=== PATIENT | female | born 1975 | race Caucasian/White ===

== ENCOUNTER 2019-11-22 07:44 | Observation (INO) | payer OTHER, BC ==
[2019-11-22] MEDS ORDERED: Thiamine 200 MG/2 ML MDV IM ONE (08:30)
[2019-11-22] MEDS ORDERED: Nicotine 21 MG/24 Hr Patch ONE (09:43)
[2019-11-22] MEDS: LORazepam 1 MG Tab PO PRN ×2 (10:08→20:43)
[2019-11-22] MEDS: Acetaminophen 500 MG Tab PO PRN ×2 (10:09→19:27)
[2019-11-22] MEDS ORDERED: Ondansetron 4 MG Tab.DIS PO PRN (10:19)
--- NOTE | 2019-11-22 13:33 | CT ---
Date of Service: 11/22/19 Clinical Data: head injury r/t fall UNENHANCED BRAIN CT: Multislice axial acquisition without IV contrast was performed. No priors. No masses or mass effect. No intracranial hemorrhage. No evidence of acute or subacute infarct. No fractures. IMPRESSION: No acute intracranial abnormalities. [id number] [facility]
--- NOTE | 2019-11-22 13:40 | CT ---
Date of Service: 11/21/19 Clinical Data: head injury r/t fall CERVICAL SPINE CT: Multislice axial acquisition was performed. Axial images and sagittal and coronal reformations are reviewed. No priors. There is straightening of the normal cervical lordosis on the sagittal reformations. This is most likely positional or due to muscle spasm. No acute fracture or dislocation. No lytic or blastic bone lesions. There is degenerative disk disease at multiple levels, greatest at the C5-6 level. There is mild facet joint hypertrophy at multiple levels. The thyroid is enlarged. There are subtle low-density lesions in both lobes of the thyroid. Thyroid ultrasound is recommended. The soft tissues are otherwise unremarkable. The visualized lung apices are clear. [id number] MTDD
--- NOTE | 2019-11-22 13:55 | EDM.PDOC ---
ED HPI GENERAL MEDICAL PROBLEM - General Chief Complaint: Head Injury Stated Complaint: fall Time Seen by Provider: 11/22/19 08:00 Source of Information: Reports: Patient History Limitations: Reports: Altered Mental Status - History of Present Illness INITIAL COMMENTS - FREE TEXT/NARRATIVE: GABRIEL presents to the emergency room today. Apparently upon triage, she said that she fell in the parking lot, slipping on the ice, and had a 2 out of 10 headache in her occiput. She denied any nausea. After about 20 minutes, she was not able to recall her mechanism of injury. This was not witnessed. She went over for CT of her head and C-spine, and after returning to the department for a couple of minutes, she did not even recall having this done. She still denied any significant pain or nausea. She denies any other injuries as well as any pain in her extremities or trunk at all. She denies neck pain, but obviously is not the most reliable historian. She is almost confabulatory in trying to leave. Apparently she really wants to go home, where she cares for her mother, but this is a significant drive, and her friend is worried about taking her at this time, quite appropriately. She asked repeatedly if she can go outside and have a cigarette. She is unable to recall simple details of her shift such as the resident who was sitting in the hallway all night on memory Nick. 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) Other Treatments SLING OPERATOR: CT Head Pain Score (Numeric/FACES): 8 - Related Data Allergies Allergy/AdvReac Type Severity Reaction Status Date / Time No Known Allergies Allergy Verified 10/24/17 23:32 Home Meds: Home Meds NK [No Known Home Meds] 10/24/17 [History] Past Medical History - Past Health History Medical/Surgical History: Denies Medical/Surgical History MANAGER RESPIRATORY CARE History: Reports: Other (See Below) Other MANAGER RESPIRATORY CARE History: c-sections Social & Family History - Tobacco Use Smoking Status *Q: Current Every Day Smoker Years of Tobacco use: 30 Packs/Tins Daily: 1 ED ROS GENERAL - Review of Systems Review Of Systems: Unable To Obtain Reason Not Obtained: Head injury ED EXAM, HEAD INJURY - Physical Exam Exam: See Below Exam Limited By: Altered Mental Status General Appearance: Alert, WD/WN, No Apparent Distress. No: Lethargic, Obtunded Head: Atraumatic, Normocephalic. No: Scalp Swelling, Scalp Hematoma, Weinberg's Sign, Facial Tenderness, Raccoon Eyes Nexus Criteria: No: Posterior, Midline Cervical Tenderness, Evidence of Intoxication, Focal Neurological Deficit, Painful Distraction Injuries Eyes: Bilateral Eye: EOMI, Normal Inspection, PERRL Ears: Normal External Exam, Hearing Grossly Normal Nose: Normal Inspection, No Blood Throat/Mouth: Normal Inspection, Normal Lips, Normal Teeth, Normal Voice Neck: Non-Tender, Full Range of Motion Respiratory: No Respiratory Distress, Lungs Clear, Normal Breath Sounds, No Accessory Muscle Use, Chest Non-Tender Cardiovascular: Regular Rate, Rhythm, No Gallop, No Murmur, No Rub GI/Abdominal Exam: Normal Bowel Sounds, Soft, Non-Tender Back Exam: Normal Inspection, Full Range of Motion. No: Muscle Spasm, Paraspinal Tenderness, Vertebral Tenderness Extremities: Normal Inspection, Normal Range of Motion, Non-Tender, Normal Capillary Refill Neurologic: dog sitter II-XII nml As Tested, No Motor/Sensory Deficits, Alert, Normal Mood/Affect, Other (Overall her thought processes confabulatory but coherent, there is no dysdiadochokinesis, and she is pleasantly oriented only to herself demonstrating features of retrograde and anterograde amnesia) Skin: Normal Color, Warm/Dry - [place] Coma Score Best Eye Response ([place]): (4) Open Spontaneously Best Verbal Response ([place]): (4) Confused Conversation Best Motor Response (George): (6) Obeys Commands George Total: 14 Course - Vital Signs Last Recorded V/S: Last Vital Signs Temp 97.6 F 11/22/19 07:53 Pulse 86 11/22/19 07:53 Resp 16 11/22/19 09:45 BP 147/95 H 11/22/19 10:30 Pulse Ox 100 11/22/19 07:50 - Orders/Labs/Meds Orders: Active Orders 24 hr Category Date Time Status LORazepam [Ativan] Med 11/22/19 09:41 Active 1 mg PO Q3H PRN Medication Orders Acetaminophen (Tylenol Extra Strength) 1,000 mg PO Q4H PRN PRN Reason: Pain Last Admin: 11/22/19 10:09 Dose: 1,000 mg Lorazepam (Ativan) 1 mg PO Q3H PRN PRN Reason: Agitation Last Admin: 11/22/19 10:08 Dose: 1 mg Ondansetron HCl (Zofran Odt) 4 mg PO Q6H PRN PRN Reason: Nausea/Vomiting Meds: Medications Generic Name Dose Route Start Last Admin Trade Name Freq PRN Reason Stop Dose Admin Acetaminophen 1,000 mg 11/22/19 10:06 11/22/19 10:09 Tylenol Extra Strength PO 1,000 mg Q4H PRN Administration Pain Lorazepam 1 mg 11/22/19 09:41 11/22/19 10:08 Ativan PO 1 mg Q3H PRN Administration Agitation Ondansetron HCl 4 mg 11/22/19 10:19 Zofran Odt PO Q6H PRN Nausea/Vomiting Discontinued Medications Generic Name Dose Route Start Last Admin Trade Name Freq PRN Reason Stop Dose Admin Nicotine Confirm 11/22/19 09:43 Habitrol Administered 11/22/19 09:44 Dose 21 mg .ROUTE .STK-MED ONE Thiamine HCl 100 mg 11/22/19 08:30 11/22/19 08:45 Vitamin B-1 IM 11/22/19 08:31 100 mg ONETIME ONE Administration Departure - Departure Time of Disposition: 09:30 Disposition: Refer to Observation Clinical Impression: Concussion injury of brain Clinical Impression: (Ruled Out): Severe concussion - Discharge Information Sepsis Event Note - Evaluation Sepsis Screening Result: No Definite Risk - Focused Exam Vital Signs: Vital Signs Temp Pulse Resp BP Pulse Ox 11/22/19 07:55 176/117 H 11/22/19 07:53 97.6 F 86 16 11/22/19 07:50 97.6 F 88 16 171/106 H 100 Date Exam was Performed: 11/22/19 Time Exam was Performed: 13:49 - My Orders Last 24 Hours: My Active Orders 11/22/19 09:41 LORazepam [Ativan] 1 mg PO Q3H PRN - Assessment/Plan Last 24 Hours: My Active Orders 11/22/19 09:41 LORazepam [Ativan] 1 mg PO Q3H PRN
[2019-11-22] MEDS ORDERED: Nicotine 21 MG/24 Hr Patch TRDERM ONE (15:59)
[2019-11-22] MEDS ORDERED: Acetaminophen/oxyCODONE 325-5 MG Tab PO PRN (21:50)
[2019-11-23] MEDS: LORazepam 1 MG Tab PO PRN (04:20)
[2019-11-26 19:10] LABS: T PALLIDUM ANTIBODIES Non Reactive (Non Reactive)
--- NOTE | 2019-11-28 12:29 | PCM.DCSUM1 ---
Discharge Summary - Hospital Course Free Text/Narrative:: Patient admitted to inpatient unit for concussive symptoms. She slept well overnight but does continue to complain of a headache. Diagnosis: Stroke: No - Discharge Data Discharge Date: 11/23/19 Discharge Disposition: Home, Self-Care 01 Condition: Good - Referral to Home Health Primary Care Physician: PCP None - Patient Instructions Diet: Usual Diet as Tolerated Activity: Apply Ice Driving: Do Not Drive Showering/Bathing: May Shower Notify Provider of: Increased Pain, Nausea and/or Vomiting - Discharge Plan *PRESCRIPTION DRUG MONITORING PROGRAM REVIEWED*: No *COPY OF PRESCRIPTION DRUG MONITORING REPORT IN PATIENT NORI: Not Applicable Home Medications: Home Meds NK [No Known Home Meds] 10/24/17 [History] Patient Handouts: Concussion, Adult Forms: ED Department Discharge Referrals: PCP,None [Primary Care Provider] - - Discharge Summary/Plan Comment DC Time >30 min.: No - Patient Data Vitals - Most Recent: Last Vital Signs Temp 36.7 C 11/23/19 10:00 Pulse 82 11/23/19 10:00 Resp 16 11/23/19 10:00 BP 146/98 H 11/23/19 10:00 Pulse Ox 100 11/23/19 10:00 Weight - Most Recent: 155 kg Med Orders - Current: Current Medications Discontinued Medications Acetaminophen (Tylenol Extra Strength) 1,000 mg PO Q4H PRN PRN Reason: Pain Last Admin: 11/22/19 19:27 Dose: 1,000 mg Lorazepam (Ativan) 1 mg PO Q3H PRN PRN Reason: Agitation Last Admin: 11/23/19 04:20 Dose: 1 mg Nicotine (Habitrol) Confirm Administered Dose 21 mg .ROUTE .STK-MED ONE Stop: 11/22/19 09:44 Last Admin: 11/22/19 15:58 Dose: Not Given Nicotine (Habitrol) 21 mg TRDERM ONETIME ONE Stop: 11/22/19 16:00 Ondansetron HCl (Zofran Odt) 4 mg PO Q6H PRN PRN Reason: Nausea/Vomiting Oxycodone/Acetaminophen (Percocet 325-5 Mg) 1 tab PO Q6H PRN PRN Reason: Headache/Pain Last Admin: 11/22/19 22:00 Dose: 1 tab Thiamine HCl (Vitamin B-1) 100 mg IM ONETIME ONE Stop: 11/22/19 08:31 Last Admin: 11/22/19 08:45 Dose: 100 mg
== END 2019-11-23 10:50 | disposition home or self-care (01) ==
LOC: LB.ED 07:44 → LB.MS 09:45
PROVIDERS: ADMIT Family Medicine; ATTEND Family Medicine
DX: S06.9X1A Unspecified intracranial injury with loss of consciousness of 30 minutes or less, initial encounter (principal); F17.210 Nicotine dependence, cigarettes, uncomplicated; W00.0XXA Fall on same level due to ice and snow, initial encounter; Y92.481 Parking lot as the place of occurrence of the external cause
CPT/HCPCS: 36415; 70450; 72125; 80048; 84443; 85025; 85651; 86780; 96372; 99285-25; A9270-GY; G0378; J3411

== ENCOUNTER 2020-08-28 21:53 | Emergency (ER) | payer BC, OTHER ==
--- NOTE | 2020-08-28 22:51 | EDM.PDOC ---
ED HPI GENERAL MEDICAL PROBLEM - General Chief Complaint: Chest Pain Stated Complaint: CHESTPAIN Time Seen by Provider: 08/28/20 22:15 Source of Information: Reports: Patient History Limitations: Reports: No Limitations - History of Present Illness INITIAL COMMENTS - FREE TEXT/NARRATIVE: Patient presented to the ER with a c/o stabbing chest pain. She reports it occurred 4 hrs ago, for which she took ASA 81mg, reports her pain is 9 out of 10. It happened after eating dinner - pork chops and potatoes. Never happened before like this. h/o chronic migraines and headaches. Underwent occipital nerve block yesterday - using local anesthetics. No SOB. no Cough. no weakness or numbness. Reports it lasted for about 30 min before it improved. Still have some pain that is 7 out of 10. Reports to me that she encountered a head injury after a fall a year ago - which have disabled her and cause cognitive issues. no h'o CAD in the past. has a h/o smoking 1 ppd for 10 yrs. She is on Imitrex for migraine. Toradol and Flexeril for pain. Upon arrival to the ER, her BP was elevated to 150/92, and she reports that her BP was elevated when she had the chest discomfort. She is on lisinopril 10mg PO daily - but reports that her BP hasn't been controlled lately. Denies withdrawal of opioids, benzo or alcohol. 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 Constitutional: Reports: No Symptoms. Denies: Fever, Chills, Malaise HEENT: Reports: No Symptoms Cardiovascular: Reports: Chest Pain, Blood Pressure Problem GI/Abdominal: Reports: No Symptoms : Reports: No Symptoms Skin: Reports: No Symptoms Neurological: Reports: Headache Immunologic: Reports: No Symptoms ED EXAM, GENERAL - Physical Exam Exam: See Below Exam Limited By: No Limitations General Appearance: Alert, WD/WN, No Apparent Distress Eye Exam: Bilateral Eye: Normal Inspection, PERRL Ear Exam: Bilateral Ear: Auricle Normal Head: Atraumatic, Normocephalic Neck: Normal Inspection, Supple, Non-Tender Respiratory/Chest: No Respiratory Distress, Lungs Clear, Normal Breath Sounds, No Accessory Muscle Use, Chest Non-Tender Cardiovascular: Normal Peripheral Pulses, Regular Rate, Rhythm, No Edema, No Gallop GI/Abdominal: Normal Bowel Sounds, Soft, Non-Tender Back Exam: Normal Inspection, Full Range of Motion Extremities: Normal Inspection, Normal Range of Motion, Non-Tender, No Pedal Edema Neurological: Alert, Oriented, Normal Cognition, Normal Gait, No Motor/Sensory Deficits Course - Vital Signs Last Recorded V/S: Last Vital Signs Temp 35.8 C L 08/28/20 21:55 Pulse 79 08/29/20 03:00 Resp 16 08/29/20 03:00 BP 126/81 08/29/20 03:00 Pulse Ox 99 08/29/20 03:00 - Orders/Labs/Meds Orders: Active Orders 24 hr Category Date Time Status Chest 2V [CR] Stat Exams 08/28/20 22:10 Taken [facility] 08/28/20 22:30 Received Labs: Laboratory Tests 08/28/20 08/28/20 08/28/20 Range/Units 22:30 22:30 22:30 WBC 10.6 D (4.0-11.0) K/uL RBC 4.39 (3.80-5.80) M/uL Hgb 13.7 (11.5-16.5) g/dL Hct 40.7 (37.0-47.0) % MCV 93 (76-96) fL MCH 31.2 (27.0-32.0) pg MCHC 33.7 (31.0-35.0) g/dL RDW 13.7 (11.0-16.0) % Plt Count 229 (150-500) K/uL MPV 10.5 H (6.0-10.0) fL Neut % (Auto) 66.9 (45.0-70.0) % Lymph % (Auto) 23.2 (20.0-40.0) % Leake % (Auto) 8.5 (3.0-10.0) % Eos % (Auto) 1.1 (1.0-5.0) % Baso % (Auto) 0.3 (0.0-0.5) % Neut # (Auto) 7.08 (2.00-7.50) K/uL Lymph # (Auto) 2.46 (1.50-4.00) K/uL Leake # (Auto) 0.90 H (0.20-0.80) K/uL Eos # (Auto) 0.12 (0.04-0.40) K/uL Baso # (Auto) 0.03 (0.02-0.10) K/uL D-Dimer, Quantitative < 100 (0-400) ng/mL Sodium (136-145) mmol/L Potassium (3.5-5.1) mmol/L Chloride (98-107) mmol/L Carbon Dioxide (21.0-32.0) mmol/L Anion Gap (5.0-15.0) mmol/L BUN (8-26) mg/dL Creatinine (0.55-1.02) mg/dL Est Cr Clr Drug Dosing mL/min Estimated GFR (MDRD) (>60) MLS/MIN BUN/Creatinine Ratio (6-25) Glucose (74-100) mg/dL Calcium (8.5-10.1) mg/dL Total Bilirubin (0.0-1.0) mg/dL AST (15-37) U/L ALT (12-78) U/L Alkaline Phosphatase (46-116) U/L Troponin I < 0.017 (0.000-0.060) ng/mL Total Protein (6.4-8.2) g/dL Albumin (3.4-5.0) g/dL Globulin (2.2-4.2) g/dL Albumin/Globulin Ratio (0.8-2.0) TSH, Ultra Sensitive (0.358-3.740) uIU/mL 08/28/20 08/28/20 08/29/20 Range/Units 22:30 22:30 02:30 WBC (4.0-11.0) K/uL RBC (3.80-5.80) M/uL Hgb (11.5-16.5) g/dL Hct (37.0-47.0) % MCV (76-96) fL MCH (27.0-32.0) pg MCHC (31.0-35.0) g/dL RDW (11.0-16.0) % Plt Count (150-500) K/uL MPV (6.0-10.0) fL Neut % (Auto) (45.0-70.0) % Lymph % (Auto) (20.0-40.0) % Leake % (Auto) (3.0-10.0) % Eos % (Auto) (1.0-5.0) % Baso % (Auto) (0.0-0.5) % Neut # (Auto) (2.00-7.50) K/uL Lymph # (Auto) (1.50-4.00) K/uL Leake # (Auto) (0.20-0.80) K/uL Eos # (Auto) (0.04-0.40) K/uL Baso # (Auto) (0.02-0.10) K/uL D-Dimer, Quantitative (0-400) ng/mL Sodium 139 (136-145) mmol/L Potassium 3.7 (3.5-5.1) mmol/L Chloride 102 (98-107) mmol/L Carbon Dioxide 29.2 (21.0-32.0) mmol/L Anion Gap 11.5 (5.0-15.0) mmol/L BUN 14 (8-26) mg/dL Creatinine 0.96 D (0.55-1.02) mg/dL Est Cr Clr Drug Dosing 64.58 mL/min Estimated GFR (MDRD) > 60 (>60) MLS/MIN BUN/Creatinine Ratio 14.6 (6-25) Glucose 101 H (74-100) mg/dL Calcium 8.8 (8.5-10.1) mg/dL Total Bilirubin 0.3 (0.0-1.0) mg/dL AST 12 L (15-37) U/L ALT 21 (12-78) U/L Alkaline Phosphatase 58 (46-116) U/L Troponin I < 0.017 (0.000-0.060) ng/mL Total Protein 7.5 (6.4-8.2) g/dL Albumin 3.8 (3.4-5.0) g/dL Globulin 3.7 (2.2-4.2) g/dL Albumin/Globulin Ratio 1.0 (0.8-2.0) TSH, Ultra Sensitive 1.626 D (0.358-3.740) uIU/mL Meds: Medications Discontinued Medications Generic Name Dose Route Start Last Admin Trade Name Freq PRN Reason Stop Dose Admin Ketorolac Tromethamine 60 mg 08/28/20 23:19 08/28/20 23:27 Toradol IM 08/28/20 23:20 60 mg ONETIME ONE Administration Metoprolol Tartrate 25 mg 08/28/20 22:43 08/28/20 22:56 Lopressor PO 08/28/20 22:44 25 mg ONETIME ONE Administration Nitroglycerin 0.4 mg 08/28/20 22:56 08/28/20 23:08 Nitrostat SL 08/28/20 22:57 0.4 mg ONETIME ONE Administration - Re-Assessments/Exams Free Text/Narrative Re-Assessment/Exam: upon arrival, EKG was obtained - showed sinus tachycardia to [address] changes. BP was noted to be slightly elevated Cardiac workup was ordered including CXR, trop, D-Dimer, and TSH. Nitro SL was given. Departure - Departure Time of Disposition: 03:30 Disposition: Home, Self-Care 01 Condition: Good Clinical Impression: Atypical chest pain, Smoking greater than 10 pack years, Hypertension, Migraine headache Referrals: PCP,None [Primary Care Provider] - Forms: ED Department Discharge Additional Instructions: - start taking new blood pressure meds as prescribed - check your Blood pressure on a daily basis - follow up with your PCP in 1-2 weeks to discuss your BP situation - return to the ER if your symptoms got worse or any concerns - recommend smoking cessation - Problem List & Annotations (1) Atypical chest pain SNOMED Code(s): 918854270 Code(s): R07.89 - OTHER CHEST PAIN Status: Acute Priority: Medium (2) Hypertension SNOMED Code(s): 54002749 Code(s): I10 - ESSENTIAL (PRIMARY) HYPERTENSION Status: Acute Priority: Medium Qualifiers: Hypertension type: unspecified Qualified Code(s): I10 - Essential (primary) hypertension (3) Smoking greater than 10 pack years SNOMED Code(s): 93317809 Code(s): F17.210 - NICOTINE DEPENDENCE, CIGARETTES, UNCOMPLICATED Status: Acute Priority: Medium (4) Migraine headache SNOMED Code(s): 20520813 Code(s): G43.909 - MIGRAINE, UNSP, NOT INTRACTABLE, WITHOUT STATUS MIGRAINOSUS Status: Acute Priority: Medium Qualifiers: Migraine type: without aura Status migrainosus presence: without status migrainosus Intractability: not intractable Qualified Code(s): G43.009 - Migraine without aura, not intractable, without status migrainosus - Problem List Review Problem List Initiated/Reviewed/Updated: Yes - My Orders Last 24 Hours: My Active Orders 08/28/20 22:10 Chest 2V [CR] Stat 08/28/20 22:30 T3 [facility] Urgent - Assessment/Plan Last 24 Hours: My Active Orders 08/28/20 22:10 Chest 2V [CR] Stat 08/28/20 22:30 T3 [facility] Urgent Plan: - start taking new blood pressure meds as prescribed - check your Blood pressure on a daily basis - follow up with your PCP in 1-2 weeks to discuss your BP situation - return to the ER if your symptoms got worse or any concerns - recommend smoking cessation
[2020-08-28] MEDS: Metoprolol Tartrate 25 MG Tab PO ONE (22:56)
[2020-08-28] MEDS: Nitroglycerin 0.4 MG Tab.SL SL ONE (23:08)
[2020-08-28] MEDS: Ketorolac 60 MG/2 ML SDV IM ONE (23:27)
--- NOTE | 2020-08-29 17:36 | CR ---
CLINICAL DATA: Chest pain. PA AND LATERAL CHEST, 28 AUGUST 2020: No priors. The heart size is normal. The lungs are clear. No pneumothorax. No pleural effusions. No evidence of acute intrathoracic disease. Job: [id number] MTDD
[2020-09-02 09:11] LABS: T3 UPTAKE 26 % (24-39)
== END 2020-08-29 03:00 | disposition home or self-care (01) ==
LOC: LB.ED 21:53
DX: R07.89 Other chest pain (principal); G43.909 Migraine, unspecified, not intractable, without status migrainosus; I10 Essential (primary) hypertension; F17.210 Nicotine dependence, cigarettes, uncomplicated; Z79.899 Other long term (current) drug therapy
CPT/HCPCS: 36415; 71046; 80053; 84443; 84479; 84484; 85025; 85379; 93005; 96372; 99284; 99285-25; A9270-GY; J1885

== ENCOUNTER 2021-01-19 17:15 | Emergency (ER) | payer SELFPAY ==
[2021-01-19] MEDS ORDERED: Orphenadrine 60 MG/2 ML Inj IM ONE (17:42)
[2021-01-19] MEDS ORDERED: Ketorolac 60 MG/2 ML SDV IM ONE (17:42)
--- NOTE | 2021-01-19 17:48 | EDM.PDOC ---
ED HPI GENERAL MEDICAL PROBLEM - General Chief Complaint: Headache Stated Complaint: MIGRAINE Time Seen by Provider: 01/19/21 17:35 Source of Information: Reports: Patient History Limitations: Reports: No Limitations - History of Present Illness INITIAL COMMENTS - FREE TEXT/NARRATIVE: here for a headache migraine. Reports it started last night and has been getting worse throughout the day. Tried Flexeril this morning but didnt help. Also tried Nortek with minimal effect. Reports light sensitivity and mild nausea. no fever or chills. no cp or SPB. no weakness or numbness. Onset: Today Duration: Day(s): (1) Location: Reports: Head Quality: Reports: Stabbing Severity: Severe Improves with: Reports: None Headache Pain Score (Numeric/FACES): 10 - Related Data Allergies Allergy/AdvReac Type Severity Reaction Status Date / Time No Known Allergies Allergy Verified 01/19/21 17:57 Home Meds: Home Meds Cyclobenzaprine [Flexeril] 10 mg PO TID 01/19/21 [History] DULoxetine [Cymbalta] 60 mg PO BID 01/19/21 [History] Ketorolac [Toradol] 1 tab PO Q6HR PRN 01/19/21 [History] Metoclopramide HCl [Reglan] 10 mg PO BID PRN 01/19/21 [History] Metoprolol Tartrate 25 mg PO BID 01/19/21 [History] Pregabalin [Lyrica] 150 mg PO BID 01/19/21 [History] Rimegepant Sulfate [Nurtec Odt] 1 tab BUCCAL DAILY PRN 01/19/21 [History] busPIRone [Buspar] 0.5 tab PO TID 01/19/21 [History] lisinopriL [Lisinopril] 10 mg PO DAILY 01/19/21 [History] Past Medical History - Past Health History Medical/Surgical History: Denies Medical/Surgical History Cardiovascular History: Reports: Hypertension Respiratory History: Reports: None 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 Neurological History: Reports: Head Trauma, Migraines ED ROS GENERAL - Review of Systems Review Of Systems: See Below Constitutional: Reports: No Symptoms HEENT: Reports: No Symptoms Respiratory: Reports: No Symptoms Cardiovascular: Reports: No Symptoms GI/Abdominal: Reports: No Symptoms : Reports: No Symptoms Skin: Reports: No Symptoms Neurological: Reports: Headache, Other (headache) - Physical Exam Exam: See Below Exam Limited By: No Limitations General Appearance: Alert, WD/WN, No Apparent Distress Eye Exam: Bilateral Eye: EOMI Head Exam: Atraumatic, Normocephalic Respiratory/Chest: No Respiratory Distress, Lungs Clear Cardiovascular: Normal Peripheral Pulses GI/Abdominal: Normal Bowel Sounds, Soft, Non-Tender Neuro Exam (Abbreviated): Alert, Oriented, Normal Cognition, No Motor/Sensory Deficits Back Exam: Normal Inspection Psychiatric: Normal Affect Course - Vital Signs Last Recorded V/S: Last Vital Signs Temp 36.4 C 01/19/21 17:15 Pulse 87 01/19/21 17:15 Resp 16 01/19/21 17:15 BP 144/103 H 01/19/21 17:15 Pulse Ox 100 01/19/21 17:15 - Orders/Labs/Meds Meds: Medications Discontinued Medications Generic Name Dose Route Start Last Admin Trade Name Dash PRN Reason Stop Dose Admin Ketorolac Tromethamine 60 mg 01/19/21 17:42 Ketorolac 60 Mg/2 Ml Sdv IM 01/19/21 17:43 ONETIME ONE Orphenadrine Citrate 60 mg 01/19/21 17:42 Orphenadrine 60 Mg/2 Ml Inj IM 01/19/21 17:43 ONETIME ONE - Re-Assessments/Exams Free Text/Narrative Re-Assessment/Exam: 01/19/21 17:48 IM toradol and norflex 60mg were given - reported significant improvement in pain control Departure - Departure Time of Disposition: 18:24 Disposition: Home, Self-Care 01 Condition: Good Clinical Impression: Migraine - Discharge Information *PRESCRIPTION DRUG MONITORING PROGRAM REVIEWED*: Not Applicable *COPY OF PRESCRIPTION DRUG MONITORING REPORT IN PATIENT NORI: Not Applicable Instructions: Recurrent Migraine Headache, [id number] Forms: ED Department Discharge Additional Instructions: - resume home meds as before - increase fluids intake - recommend to get enough rest and sleep at home - follow up with your PCP in 1-2 weeks as needed Sepsis Event Note (ED) - Focused Exam Vital Signs: Vital Signs Temp Pulse Resp BP Pulse Ox 01/19/21 17:15 36.4 C 87 16 144/103 H 100 - Problem List & Annotations (1) Migraine SNOMED Code(s): 92757617 Code(s): G43.909 - MIGRAINE, UNSP, NOT INTRACTABLE, WITHOUT STATUS MIGRAINOSUS Status: Acute Priority: Medium - Problem List Review Problem List Initiated/Reviewed/Updated: Yes - Assessment/Plan Plan: - resume home meds as before - increase fluids intake - recommend to get enough rest and sleep at home - follow up with your PCP in 1-2 weeks as needed
[2021-01-19] MEDS ORDERED: Ondansetron 4 MG Tab.DIS PO ONE (18:10)
== END 2021-01-19 18:33 | disposition home or self-care (01) ==
LOC: LB.ED 17:15
DX: G43.909 Migraine, unspecified, not intractable, without status migrainosus (principal); I10 Essential (primary) hypertension; Z79.899 Other long term (current) drug therapy
CPT/HCPCS: 96372; 99283; A9270; J1885; J2360